=== PATIENT | female | born 1985 ===

== ENCOUNTER 2021-04-12 22:53 | Emergency (ER) | payer OTHER, SELFPAY ==
[2021-04-12 23:13] VITALS: BP 126/95; PULSE 95; RESP 20; TEMP 36.4; O2SAT 99
[2021-04-12 23:37] LABS: SARS-CoV-2 Ag Positive (Negative)
--- NOTE | 2021-04-12 23:45 | ED.FEVER ---
HPI - Fever General Chief Complaint: Fever Stated Complaint: weak/fatigued/possible covid Source: patient Mode of arrival: ambulatory Limitations: no limitations History of Present Illness HPI Narrative: this is a 36-year-old female called all for today because she was feverish and had some body aches and presents this evening with some mild cough low-grade fever with no shortness of breath no wheezing has been exposed to COVID. MD elicited complaint: fever Context: sick contacts Related Data Home Medications Medication Instructions Recorded Confirmed No Home Medications 04/12/21 04/12/21 Allergies Allergy/AdvReac Type Severity Reaction Status Date / Time No Known Allergies Allergy Unverified 01/18/19 08:43 Review of Systems Review of Systems: All systems reviewed & are unremarkable except as noted in HPI and below PMFSH Past Medical History Medical History Patient denies medical problems Family History Family History Other Family history of arthritis Family history of cardiovascular disease Family history of malignant neoplasm Hypertension Social History Social History Smoking status: Never smoker Alcohol intake: current Exam Const: General: no acute distress Orientation/consciousness: patient oriented x3 HENMT: Head: normal to inspection Eyes: Conjunctivae: conjunctivae normal Pupils: Equal, round and reactive pupils present EOM: EOMs intact bilaterally Direct Ophthalmoscopy: no photophobia Neck: Neck: normal visual inspection, no lymphadenopathy and no meningeal signs Chest: Chest palpation & inspection: normal inspection of the chest Resp: Effort & Inspection: normal respiratory effort Auscultation: clear to auscultation bilaterally Cardio: Rate: regular rate Rhythm: regular rhythm GI: GI Palp: Yes Soft to palpation Percussion: Yes normal to percussion : General: Yes no CVA tenderness Urinary Catheter: Urinary Catheter: patent and draining Back/Spine/Pelvis: Back: no CVA tenderness Skin: General skin exam: normal color Rashes: no rashes Neuro: General: patient oriented x3 Extrem: General: normal to inspection and no pedal edema Psych: Mental Status: mental status grossly normal Affect: normal affect Course [employer]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 Vital Signs Vital signs: Vital Signs Temperature 36.4 C 04/12/21 23:13 Pulse Rate 95 04/12/21 23:13 Respiratory Rate 04/12/21 23:13 Blood Pressure 126/95 H 04/12/21 23:13 Pulse Oximetry 99 04/12/21 23:13 Temperature 36.4 C 04/12/21 23:13 Pulse Rate 95 04/12/21 23:13 Respiratory Rate 04/12/21 23:13 Blood Pressure 126/95 H 04/12/21 23:13 Pulse Oximetry 99 04/12/21 23:13 MDM - Fever Lab Data Labs: Lab Results 04/12/21 Range/Units 23:15 SARS-CoV-2 Ag (Rapid) Positive A (Negative) Critical Care Time Critical Care Time Critical Care Time: No Discharge Plan Discharge Clinical Impression: COVID-19 Patient Disposition: Home, Self-Care Condition: Stable Instructions: Antibiotic Form, COVID-19 (Coronavirus Disease 2019) (ED) Additional Instructions: needs to quarantine x2 weeks follow up with primary care physician take Tylenol or Motrin drink plenty of water get rest. Prescriptions: No Action No Home Medications RF: 0 Follow-up/Referrals: Manuel Jones MD [Primary Care Provider] - Stand Alone Forms: Work/School Release IP Time of Disposition: 23:48
[2021-04-12 23:46] VITALS: BP 122/80; PULSE 87; RESP 20; TEMP 36.6; O2SAT 99
== END 2021-04-12 23:55 | disposition home or self-care (01) ==
PROVIDERS: Emergency Provider Emergency Medicine; PCP Family Medicine
DX: U07.1 COVID-19 (principal)
CPT/HCPCS: 87426; 99282; 99283; C9803

== ENCOUNTER 2022-01-16 06:31 | Emergency (ER) | payer OTHER, SELFPAY ==
[2022-01-16 06:53] VITALS: BP 109/84; PULSE 88; RESP 20; TEMP 36.7; O2SAT 98
[2022-01-16] MEDS: ACETAMINOPHEN 325 MG TABLET 650 MG PO (07:40)
[2022-01-16 08:15] LABS: Influenza A QL RT-PCR Negative (Negative); Influenza B QL RT-PCR Negative (Negative); SARS-CoV-2 RNA PCR Positive (Negative)
--- NOTE | 2022-01-16 08:32 | ED.URI ---
HPI - URI/Sore Throat General Chief Complaint: Upper Respiratory Infection Stated Complaint: fever sore throat headache Time Seen by Provider: 01/16/22 07:02 Source: patient and RN notes reviewed Mode of arrival: ambulatory Limitations: no limitations History of Present Illness MD elicited complaint: cough, sore throat and other ([place], exposure to the virus) Onset (ago): day(s) (2) Severity: mild Pain scale (0-10): 4 Able to tolerate fluids by mouth: Yes Exacerbating factors: nothing Relieving factors: nothing Associated symptoms: headache and sore throat Related Data Allergies Allergy/AdvReac Type Severity Reaction Status Date / Time No Known Allergies Allergy Unverified 01/18/19 08:43 Review of Systems Review of Systems: All systems reviewed & are unremarkable except as noted in HPI and below Constitutional: Constitutional: Reports no additional constitutional complaints Eyes: Eyes: Reports no additional eye complaints ENT: Reports system reviewed and no additional complaints, except as documented Cardiovascular: Cardiovascular: Reports no additional cardiovascular complaints Respiratory: Respiratory: Reports no additional respiratory complaints Gastrointestinal: Gastrointestinal: Reports no additional gastrointestinal complaints Genitourinary: Genitourinary: Reports no additional female genitourinary complaints Musculoskeletal: Musculoskeletal: Reports no additional musculoskeletal complaints Integumentary/Breasts: Skin/Breast: Reports system reviewed and no additional complaints, except as docu Neurologic: Reports system reviewed and no additional complaints, except as documented Psychiatric: Psychiatric: Reports no additional psychiatric complaints Endocrine: Endocrine: Reports no additional endocrine complaints Hematologic/Lymphatic: Hematologic/Lymphatic: Reports no additional hematologic/lymphatic complaints Allergic/Immunologic: Allergic/Immunologic: Reports no additional allergic/immunologic complaints PMFSH Past Medical History Medical History COVID-19 Patient denies medical problems Pharyngitis Family History Family History Other Family history of arthritis Family history of cardiovascular disease Family history of malignant neoplasm Hypertension Social History Social History Smoking status: Never smoker Alcohol intake: current Exam Const: General: healthy appearing and no acute distress Nutritional Appearance: well nourished Orientation/consciousness: patient oriented x3 Limitations: no limitations HENMT: Head: normal to inspection Ears: external ears normal, TM's normal bilaterally and EAC's normal General nose exam: Normal external nose present and Normal nares present Face and sinus: normal facial exam and sinuses nontender Mouth: Yes Normal oral and palatal mucosa present and Yes moist mucous membranes Teeth and gingiva: dentition normal Other: hyperemic pharynx Eyes: Conjunctivae: conjunctivae normal Pupils: Equal, round and reactive pupils present EOM: EOMs intact bilaterally Neck: Neck: normal visual inspection, no lymphadenopathy and no meningeal signs Chest: Chest palpation & inspection: normal inspection of the chest Resp: Effort & Inspection: normal respiratory effort Auscultation: clear to auscultation bilaterally Cardio: Rate: regular rate Rhythm: regular rhythm GI: GI Palp: Yes Soft to palpation and No Tenderness to palpation present (GI) Auscultation: normal bowel sounds : General: Yes bladder normal to palpation and Yes no CVA tenderness Bimanual exam- vagina & uterus: bladder normal to palpation Back/Spine/Pelvis: Back: no CVA tenderness Skin: General skin exam: normal color Rashes: no rashes Wounds: no wounds Neuro: General: patient oriented x3, moves all extremit
[2022-01-16] MEDS: cefTRIAXone 1 GM, LIDOCAINE HCL 1% LOCAL INJ 2.1 ML IM (08:43)
[2022-01-16] MEDS: guaiFENesin 12 HR 600 MG TABCR PO (08:43)
[2022-01-16 08:51] VITALS: BP 114/92; PULSE 76; RESP 16; TEMP 36.9; O2SAT 100
== END 2022-01-16 08:53 | disposition home or self-care (01) ==
PROVIDERS: Emergency Provider Emergency Medicine; PCP Family Medicine
DX: U07.1 COVID-19 (principal); J02.9 Acute pharyngitis, unspecified
CPT/HCPCS: 87502; 87880; 96372; 99283; A9270; C9803; J0696; U0003; U0005

== ENCOUNTER 2022-02-13 00:35 | Emergency (ER) | payer OTHER, SELFPAY ==
--- NOTE | ~2022-02-13 | XR_ITS ---
EXAMINATION: XR knee LT 3V DATE: 02/13/2022 01:35 INDICATION: Left knee pain. TECHNIQUE: 3 views of left knee were obtained. COMPARISON: None. FINDINGS: Bone alignment is normal. No fracture. There is mild tricompartmental osteoarthritis. No kn ee joint effusion. There are loose bodies in the joint. IMPRESSION: 1. Mild left knee osteoarthritis with loose bodies. Reviewed, dictated and finalized at location A.
--- NOTE | 2022-02-13 00:45 | ED.GENADULT ---
HPI - General Adult General Chief complaint: Extremity Problem,Nontraumatic Stated complaint: left knee History of Present Illness HPI narrative: this is a 36-year-old female with a chronic left knee injury present ED with left knee pain. Patient says that the pain has been getting progressively worse over the last month although she has been dealing with for 12-13 years. Patient has not tried anything for pain control. She does use a brace. She does walk a significant amount of work. She notices that the pain gets better when she is able to relax and when she does stretches. Patient denies any traumatic events. She denies any erythema warmth joint. She denies fever, chills, nausea vomiting or diarrhea. She has no other physical complaints at this time. Related Data Allergies Allergy/AdvReac Type Severity Reaction Status Date / Time No Known Allergies Allergy Unverified 01/18/19 08:43 Review of Systems Constitutional: Constitutional: Denies chills Eyes: Eyes: Denies no additional eye complaints ENT: Denies dysphagia Cardiovascular: Cardiovascular: Denies chest pain Respiratory: Respiratory: Denies chest congestion Gastrointestinal: Gastrointestinal: Denies abdominal pain Genitourinary: Genitourinary: Denies abnormal vaginal bleeding Musculoskeletal: Musculoskeletal: Denies back pain Integumentary/Breasts: Skin/Breast: Denies breast pain Neurologic: Denies confusion Psychiatric: Psychiatric: Denies anxiety Endocrine: Endocrine: Denies excessive sweating Hematologic/Lymphatic: Hematologic/Lymphatic: Denies easy bleeding Allergic/Immunologic: Allergic/Immunologic: Denies lip swelling PMFSH Past Medical History Medical History COVID-19 Hx of fracture of radius Patient denies medical problems Pharyngitis Family History Family History Other Family history of arthritis Family history of cardiovascular disease Family history of malignant neoplasm Hypertension Social History Social History Smoking status: Never smoker Alcohol intake: current Exam Const: General: healthy appearing, no acute distress and alert Nutritional Appearance: well nourished Orientation/consciousness: patient oriented x3 HENMT: Head: normal to inspection Eyes: Conjunctivae: conjunctivae normal Neck: Neck: normal visual inspection Chest: Chest palpation & inspection: normal inspection of the chest Resp: Effort & Inspection: normal respiratory effort Cardio: Rate: regular rate GI: GI Palp: Yes Soft to palpation, No Tenderness to palpation present (GI) and No Guarding due to palpation present (GI) Back/Spine/Pelvis: Back: no CVA tenderness Skin: General skin exam: normal color Neuro: General: patient oriented x3, moves all extremities and CN's II-XI intact bilaterally Extrem: General: normal to inspection Other: Patient is wearing a knee brace on her left knee. There is no skin discoloration. There is no swelling. There is no bruising. Patient has some pain on range of motion @ the extremes of range. She is able to ambulate. Course Vital Signs Vital signs: Vital Signs Temperature 97.6 F 02/13/22 00:58 Pulse Rate 100 02/13/22 00:58 Respiratory Rate 18 02/13/22 00:58 Blood Pressure 125/81 02/13/22 00:58 Pulse Oximetry 97 02/13/22 00:58 Oxygen Delivery Room Air 02/13/22 00:58 Temperature 97.6 F 02/13/22 00:58 Pulse Rate 100 02/13/22 00:58 Respiratory Rate 18 02/13/22 00:58 Blood Pressure 125/81 02/13/22 00:58 Pulse Oximetry 97 02/13/22 00:58 Oxygen Delivery Room Air 02/13/22 00:58 Medical Decision Making MDM Narrative Medical decision making narrative: This is a 36-year-old female presenting with acute on chronic knee pain. Patient injured her knee 12 13 years ago and th
[2022-02-13 00:58] VITALS: BP 125/81; PULSE 100; RESP 18; TEMP 36.4; O2SAT 97
[2022-02-13] MEDS: ACETAMINOPHEN 500 MG TABLET 1000 MG PO (01:08)
[2022-02-13] MEDS: IBUPROFEN 400 MG TABLET 800 MG PO (01:08)
[2022-02-13 02:08] VITALS: BP 128/74; PULSE 84; RESP 18; O2SAT 99
== END 2022-02-13 02:09 | disposition home or self-care (01) ==
PROVIDERS: Emergency Provider Emergency Medicine; PCP Family Medicine
DX: M17.12 Unilateral primary osteoarthritis, left knee (principal)
CPT/HCPCS: 73562; 99283; A9270

== ENCOUNTER 2024-03-27 20:50 | Emergency (ER) | payer OTHER, SELFPAY ==
--- NOTE | ~2024-03-27 | XR_ITS ---
EXAMINATION: XR chest 1V portable DATE: 03/27/2024 21:15 INDICATION: Subjective fever. COVID-19 exposure. TECHNIQUE: A single frontal view of the chest was obtained. COMPARISON: None. FINDINGS: There is no pneumonia, pleural effusion, or pneumothorax. The heart size is normal. IMPRESSION: 1. No acute cardiopulmonary disease. Reviewed, dictated and finalized at location A.
[2024-03-27 20:53] VITALS: BP 120/85; PULSE 93; RESP 18; TEMP 36.6; O2SAT 100
--- NOTE | 2024-03-27 21:06 | ED.GENADULT ---
HPI - General Adult General Chief complaint: Fever Stated complaint: upper respiratory Time Seen by Provider: 03/27/24 21:02 Source: patient Mode of arrival: ambulatory Limitations: no limitations History of Present Illness HPI narrative: patient came to the ED complaining of headache and not feeling well with general weakness started yesterday got worse today. Patient been exposed to COVID patient 1 week ago at work. Currently she denies any fever, chills, nausea, vomiting, shortness of breath or chest pain. Patient been taking Excedrin with improving Related Data Home Medications Medication Instructions Recorded Confirmed No Home Medications 03/27/24 03/27/24 Allergies Allergy/AdvReac Type Severity Reaction Status Date / Time No Known Allergies Allergy Unverified 01/18/19 08:43 Review of Systems Review of Systems: All systems reviewed & are unremarkable except as noted in HPI and below PMFSH Past Medical History Medical History COVID-19 Hx of fracture of radius Patient denies medical problems Pharyngitis Family History Family History Other Family history of arthritis Family history of cardiovascular disease Family history of malignant neoplasm Hypertension Social History Social History Smoking status: Never smoker Alcohol intake: current Exam Narrative: General appearance: Well-developed, well-nourished Skin: Normal color Head: Normocephalic, nontraumatic Eyes: Clear conjunctiva ENT: Oropharynx normal, ears normal, nose normal Neck: Supple, nontender Chest and respiratory: Airway patent, no respiratory distress, no accessory muscle use Heart: Regular rate/rhythm Abdomen: Soft, nontender, no organomegaly, quiet bowel sounds Vascular: Normal peripheral pulses, normal capillary refill. Musculoskeletal: Normal range of motion, nontender back Neurologic: Alert and oriented ?3, WE[employer]ISTR[employer] is normal as tested, no gross motor deficit Course Vital Signs Vital signs: Vital Signs Temperature 36.6 C 03/27/24 20:53 Pulse Rate 93 03/27/24 20:53 Respiratory Rate 18 03/27/24 20:53 Blood Pressure 120/85 03/27/24 20:53 Pulse Oximetry 100 03/27/24 20:53 Oxygen Delivery Room Air 03/27/24 20:53 Temperature 36.6 C 03/27/24 20:53 Pulse Rate 93 03/27/24 20:53 Respiratory Rate 18 03/27/24 20:53 Blood Pressure 120/85 03/27/24 20:53 Pulse Oximetry 100 03/27/24 20:53 Oxygen Delivery Room Air 03/27/24 20:53 Medical Decision Making MDM Narrative Medical decision making narrative: differential diagnosis viral infection, urinary tract infection, depression, anxiety. Today workup showed negative for COVID, urine analysis showed no evidence of infection, Patient agreed with a lot of stress lately. Vital Signs Vital Signs: Vital Signs Temperature 36.6 C 03/27/24 20:53 Pulse Rate 93 03/27/24 20:53 Respiratory Rate 18 03/27/24 20:53 Blood Pressure 120/85 03/27/24 20:53 Pulse Oximetry 100 03/27/24 20:53 Oxygen Delivery Room Air 03/27/24 20:53 Temperature 36.6 C 03/27/24 20:53 Pulse Rate 93 03/27/24 20:53 Respiratory Rate 18 03/27/24 20:53 Blood Pressure 120/85 03/27/24 20:53 Pulse Oximetry 100 03/27/24 20:53 Oxygen Delivery Room Air 03/27/24 20:53 Lab Data Labs: Lab Results 03/27/24 03/27/24 Range/Units 20:54 21:38 Urine Color Light yellow (Yellow) Urine Appearance Clear (Clear) Urine pH 6.0 (5.0-8.0) Ur Specific [place] 1.025 H (1.010-
--- NOTE | 2024-03-27 21:11 | PC.NURSE ---
Say with xray at the bedside
[2024-03-27 21:33] LABS: Influenza A QL RT-PCR Negative (Negative); Influenza B QL RT-PCR Negative (Negative); RSV RNA, RT-PCR Negative (Negative); SARS-CoV-2 RNA PCR Negative (Negative)
--- NOTE | 2024-03-27 21:39 | PC.NURSE ---
pt taken to bathroom to get a urine specimen
[2024-03-27 21:46] LABS: Add Urine Microscopic? YES; Appearance Urine Clear (Clear); Bilirubin Urine Negative (Negative); Blood Urine Negative (Negative); Color Urine Light Yellow (Yellow); Glucose Urine UA Negative (Negative); Ketones Urine Negative (Negative); Leukocyte Esterase Ur Trace LEU/UL (Negative); Nitrate Urine Negative (Negative); Protein Urine Negative (Negative); Specific Grav Ur 1.025 (1.010-1.020)
[2024-03-27 21:50] LABS: Bacteria Urine Trace /hpf; RBC Urine None seen /hpf (0-2); Squamous Epithelial Cell Urine Few /hpf (Few); WBC Urine 0-3 /hpf (0-3)
[2024-03-27 22:00] VITALS: BP 122/82; PULSE 80; RESP 18; O2SAT 98
== END 2024-03-27 22:00 | disposition home or self-care (01) ==
PROVIDERS: Emergency Provider Emergency Medicine
DX: R50.9 Fever, unspecified (principal); R51.9 Headache, unspecified; R53.1 Weakness; Z20.822 Contact with and (suspected) exposure to COVID-19
CPT/HCPCS: 71045; 81001; 87637; 99283

== ENCOUNTER 2024-07-04 16:18 | Emergency (ER) | payer OTHER, SELFPAY ==
--- NOTE | ~2024-07-04 | CT_ITS ---
CT abdomen pelvis wo con Ordering provider: Norbert Polo MD History: 39 years Female with . renal stone/right side pain . Comparison: None. Technique: CT abdomen and pelvis without IV and without oral contrast. Automated exposure control and iterative reconstruction technique were employed. The dose-length product was 188.06 mGy-cm. Findings: VISUALIZED LOWER CHEST: Normal. Trace pericardial effusion. UPPER ABDOMINAL ORGANS: Liver: Hepatomegaly..Calcification is seen in the marivel hepatis area.bile or cystic duct stone canno t be excluded.. Gallbladder: Cholelithiasis. Lucency is seen which may be a stone.Air is less likely. Spleen: Normal. Stomach/duodenum: Normal. Pancreas: Normal. Adrenals: Normal. Kidneys: Normal. PELVIC ORGANS: The bladder is underfilled. Slightly thickened wall. Enlarged left ovary is seen measuring 3.7 x 7. 6 cannot be excluded. Ultrasound evaluation advised. BOWEL AND MESENTERY: Colon: No Evidence of diverticulitis. Fecal material is seen in the colon suggestive of constipation. No evidence of appendicitis. Small Bowel: Normal. No obstruction. Peritoneum/mesentery: No free air or free fluid. No mesenteric lymphadenopathy. RETROPERITONEUM: Normal aorta. No retroperitoneal lymphadenopathy. MUSCULOSKELETAL: Superficial soft tissues: The superficial soft tissues are normal. Bones: Normal spine. IMPRESSION: 1. No evidence of appendicitis, diverticulitis or intestinal obstruction. 2. Cholelithiasis. Possible stone in the cystic or common bile duct. 3. Enlarged left ovary. Evaluation for torsion ovary should be considered. Ultrasound is recommended . 4. Hepatomegaly. 5. Constipation.. Reviewed, dictated and finalized at location A. NESS OBJECTS ANALYST IMPRESSION: 1. No evidence of appendicitis, diverticulitis or intestinal obstruction. 2. Cholelithiasis. Possible stone in the cystic or common bile duct. 3. Enlarged left ovary. Evaluation for torsion ovary should be considered. Ult rasound is recommended. 4. Hepatomegaly. 5. Constipation..
[2024-07-04 16:18] VITALS: BP 109/79; PULSE 114; RESP 16; TEMP 37.4; O2SAT 100
--- NOTE | 2024-07-04 16:24 | ED_ITS ---
HPI - Female Genitourinary General Chief complaint: Urogenital-Female Stated complaint: UTI Time Seen by Provider: 07/04/24 16:23 Source: patient Mode of arrival: ambulatory Limitations: no limitations History of Present Illness HPI Narrative: patient is a 39-year-old female with right back pain lower and right flank and forward pain of the abdomen for the past week. She has been having discomfort on urination and urinating more than normal. MD elicited complaint: dysuria, UTI , back pain ( Right lower back) and flank pain ( right side) Pertinent past history: other ( none) Onset (ago): week(s) (1) Location of symptoms: suprapubic, RLQ and flank ( right) Severity: moderate Female Urogenital Radiation: R Flank Severity scale (1-10): 6 Quality of pain: sharp Consistency: constant Vaginal discharge: none Vaginal bleeding: none Urinary symptoms: Dysuria, Urgency and Frequency Exacerbating factors: other ( patient took azo this week which helped minimally) Relieving factors: none Associated symptoms: abdominal pain and back pain Treatment prior to arrival: other ( azo) Related Data Home Medications Medication Instructions Recorded Confirmed No Home Medications 03/27/24 07/04/24 Allergies Allergy/AdvReac Type Severity Reaction Status Date / Time No Known Allergies Allergy Unverified 07/04/24 16:44 Review of Systems Review of Systems: All systems reviewed & are unremarkable except as noted in HPI and below Constitutional: Constitutional: Reports no additional constitutional co mplaints Eyes: Eyes: Reports no additional eye complaints ENT: Reports system reviewed and no additional complaints, except as documented Cardiovascular: Cardiovascular: Reports no additional cardiovascular complaints Respiratory: Respiratory: Reports no additional respiratory complaints Gastrointestinal: Gastrointestinal: Reports no additional gastrointestinal complaints Genitourinary: Genitourinary: Reports no additional female genitourinary complaints Musculoskeletal: Musculoskeletal: Reports no additional musculoskeletal complaints Integumentary/Breasts: Skin/Breast: Reports system reviewed and no additional complaints, except as docu Neurologic: Reports system reviewed and no additional complaints, except as documented Psychiatric: Psychiatric: Reports no additional psychiatric complaints Endocrine: Endocrine: Reports no additional endocrine complaints Hematologic/Lymphatic: Hematologic/Lymphatic: Reports no additional hematologic/lymphatic complaints Allergic/Immunologic: Allergic/Immunologic: Reports no additional allergic/ immunologic complaints PMFSH Past Medical History Medical History COVID-19 Hx of fracture of radius Patient denies medical problems Pharyngitis Family History Family History Other Family history of arthritis Family history of cardiovascular disease Family history of malignant neoplasm Hypertension Social History Social History Smoking status: Never smoker Alcohol intake: current Exam Const: General: healthy appearing Nutritional Appearance: well nourished Orientation/consciousness: patient oriented x3 Limitations: no limitations Other: acute pain/ distress due to the right back pain and she also has a headache at this time HENMT: Head: normal to inspection Ears: external ears normal Face/ Nose/Sinus: Normal external nose present Eyes: Conjunctivae: conjunctivae normal Pupils: Equal, round and reactive pupils present EOM: EOMs intact bilaterally Neck: Neck: normal visual inspection Chest: Chest palpation & inspection: normal inspection of the chest Resp: Effort & Inspection: normal respiratory effort and not labored Auscultation: clear to auscultation bilaterally Cardio: Rate: regular rate Rhythm: regular rhythm Heart sounds: no murmurs GI: Inspection: non-distended GI Palp: Yes Soft to palpation, Yes Tenderness to palpation present (GI) ( right lower quadrant and right flank and right lower back), No Guarding due to palpation present (GI), No Rigid due to palpation, No Hernia present, No Palpable mass present and No Rebound tenderness present Auscultation: normal bowel sounds Back/Spine/Pelvis: Back: no CVA tenderness Skin: General skin exam: normal color Rashes: no rashes Wounds: no wounds Neuro: General: patient oriented x3 Cranial nerves: Yes Nystagmus not present Speech: normal speech Extrem: General: normal to inspection Psych: Appearance: grossly normal Mental Status: mental status grossly normal Affect: normal affect Course Vital Signs Vital signs: Vital Signs Temperature 37.4 C 07/04/24 16:18 Pulse Rate 114 H 07/04/24 16:18 Respiratory Rate 16 07/04/24 16:18 Blood Pressure 109/79 07/04/24 16:18 Pulse Oximetry 100 07/04/24 16:18 Temperature 37.4 C 07/04/24 16:18 Pulse Rate 99 12/03/24 18:56 Respiratory Rate 16 07/04/24 18:56 Blood Pressure 116/91 H 07/04/24 18:56 Pulse Oximetry 100 07/04/24 18:56 Oxygen Delivery Room Air 07/04/24 18:00 MDM - Female Genitourinary MDM Narrative Medical decision making narrative: patient is a 39-year-old female with right sided pain and urinary symptoms. We will initially start with UA and U preg. Much urine blood was noted and with her symptoms we will go ahead and get a CT abdomen and pelvis to rule out kidney stone. If that is positive we will check labs. CT scan shows a questionable torsion on the left. We will transfer patient ER to ER for an emergent ultrasound at this time. They will treat the UTI at that time. Discussed case with ER attending. Lab Data Attestation: I reviewed the patient's lab results. 07/04/24 19:48 07/04/24 19:48 Labs: Lab Results 07/04/24 07/04/24 07/04/24 Range/Units 16:23 16:24 19:48 WBC 7.5 (4.8-10.8) K/mm3 RBC 3.65 L (4.20-5.40) M/mm3 Hgb 11.5 L (12.0-15.0) g/dL Hct 33.0 L (35.0-49.0) % MCV 90.4 (78.0-102.0) fL MCH 31.5 H (27.0-31.0) pg MCHC 34.8 (32-36) g/dL RDW 12.1 (11.6-14.4) % Plt Count 284 (150-420) K/mm3 MPV 9.0 L (9.2-11.8) fl Immature Gran % (Auto) 0.4 H (0.0-0.0) % Neut % (Auto) 65.2 (50.0-70.0) % Lymph % (Auto) 23.1 (18.0-42.0) % [place] % (Auto) 9.1 (2.0-11.0) % Eos % (Auto) 1.7 (1.0-6.0) % Baso % (Auto) 0.5 (0.0-1.0) % Lymph # (Auto) 1.72 (1.10-4.50) K/mm3 [place] # (Auto) 0.68 (0.10-0.90) K/mm3 Eos # (Auto) 0.13 (0.02-0.50) K/mm3 Baso # (Auto) 0.04 (0.00-0.10) K/mm3 Abs Immat Gran (auto) 0.03 H (0.00-0.00) K/mm3 Absolute Neuts (auto) 4.85 (1.70-7.20) K/mm3 Absolute Nucleated RBC 0.00 (0.00-0.00) K/mm3 Nucleated RBC % 0.0 (0-0.0) % PT 10.9 (9.50-12.1) Seconds INR 1.0 APTT 31.8 H (23.9-30.70) Sec Sodium 134 L (136-145) mmol/L Potassium 3.3 L (3.5-5.1) mmol/L Chloride 99 (98-108) mmol/L Carbon Dioxide 28 (21-32) mmol/L Anion Gap 7 (4-12) mmol/L BUN 5 L (7-18) mg/dL Creatinine 0.68 (0.55-1.02) mg/dL Estim Creat Clear Calc 76 ml/min Estimated GFR > 60 (59 - ) Glucose 110 H (70-99) mg/dL Calculated Osmolality 276 L (285-295) mOsm/kg Calcium 8.6 (8.5-10.1) mg/dL Total Bilirubin 0.5 (0.00-1.00) mg/dL AST 16 (15-37) U/L ALT 53 (14-59) U/L Alkaline Phosphatase 108 (46-116) U/L Total Protein 6.9 (6.4-8.2) g/dL Albumin 2.7 L (3.4-5.0) g/dL Urine Color Light yellow (Yellow) Urine Appearance Sl cloudy A (Clear) Urine pH 7.0 (5.0-8.0) Ur Specific [place] 1.010 (1.010-1.020) Urine Protein Trace H (Negative) Urine Glucose (UA) Negative (Negative) Urine Ketones Negative (Negative) Ur Blood (Man) 2+ H (Negative) Urine Nitrate Negative (Negative) Urine Bilirubin Negative (Negative) Urine Urobilinogen 2.0 H (0.2-1.0) mg/dL Leukocyte Esterase Rfl 1+ H (Negative) MURRAY/UL Urine RBC 6-10 H (0-2) /hpf Urine WBC 7-9 H (0-3) /hpf Ur Squamous Epith Cells Few (Few) /hpf Urine Bacteria 1+ H (None) /hpf Urine Test Negative Imaging Data Attestation: I personally reviewed and interpreted this imaging study as follows: Discharge Plan Discharge Clinical Impression: UTI (urinary tract infection), Ovarian torsion Patient Disposition: Acute Care Hospital Condition: Serious Prescriptions: No Action No Home Medications Follow-up/Referrals: UNKNOWN,DOCTOR [Primary Care Provider] - Time of Disposition: 20:16
[2024-07-04 16:40] LABS: Add Urine Microscopic? YES; Appearance Urine Sl Cloudy (Clear); Bilirubin Urine Negative (Negative); Blood Urine 2+ (Negative); Color Urine Light Yellow (Yellow); Glucose Urine UA Negative (Negative); Ketones Urine Negative (Negative); Leukocyte Esterase Ur 1+ LEU/UL (Negative); Nitrate Urine Negative (Negative); Protein Urine Trace (Negative)
[2024-07-04 16:46] LABS: Bacteria Urine 1+ /hpf; Squamous Epithelial Cell Urine Few /hpf (Few)
[2024-07-04 16:46] LABS: Pregnancy On Board Control Positive; Urine Pregnancy Test Negative
[2024-07-04 17:30] VITALS: BP 113/79; PULSE 100; RESP 17; O2SAT 100
[2024-07-04 18:00] VITALS: BP 124/85; PULSE 102; RESP 17; O2SAT 100
[2024-07-04 18:56] VITALS: BP 116/91; PULSE 99; RESP 16; O2SAT 100
[2024-07-04 19:51] LABS: Basophils Absolute Auto 0.04 K/mm3 (0.00-0.10); Basophils Percent Auto 0.5 % (0.0-1.0); Eosinophils Absolute Auto 0.13 K/mm3 (0.02-0.50); Eosinophils Percent Auto 1.7 % (1.0-6.0); Hemoglobin 11.5 g/dL (12.0-15.0); Immature Granulocyte Absolute 0.03 K/mm3 (0.00-0.00); Immature Granulocyte Percent A 0.4 % (0.0-0.0); Lymphocytes Absolute Auto 1.72 K/mm3 (1.10-4.50); Lymphocytes Percent Auto 23.1 % (18.0-42.0); Mean Corpuscular HGB Conc 34.8 g/dL (32-36); Mean Corpuscular Hemoglobin 31.5 pg (27.0-31.0); Mean Corpuscular Volume 90.4 fL (78.0-102.0); Monocytes Absolute Auto 0.68 K/mm3 (0.10-0.90); Monocytes Percent Auto 9.1 % (2.0-11.0); Neutrophils Absolute Auto 4.85 K/mm3 (1.70-7.20); Neutrophils Percent Auto 65.2 % (50.0-70.0); Platelet Count Result 284 K/mm3 (150-420); Red Blood Count 3.65 M/mm3 (4.20-5.40); Red Cell Distribution Width 12.1 % (11.6-14.4); White Blood Count 7.5 K/mm3 (4.8-10.8)
[2024-07-04 20:05] LABS: Partial Thromboplastin Time 31.8 Sec (23.9-30.70); Prothrombin Time 10.9 Seconds (9.50-12.1)
[2024-07-04 20:06] LABS: Alanine Aminotransferase 53 U/L (14-59); Albumin Level 2.7 g/dL (3.4-5.0); Alkaline Phosphatase 108 U/L (46-116); Anion Gap 7 mmol/L (4-12); Aspartate Amino Transferase 16 U/L (15-37); Bilirubin,Total 0.5 mg/dL (0.00-1.00); Blood Urea Nitrogen 5 mg/dL (7-18); Calcium 8.6 mg/dL (8.5-10.1); Carbon Dioxide 28 mmol/L (21-32); Chloride 99 mmol/L (98-108); Estimated CRCL calculation 76 ml/min; Estimated Glomerular Filt Rate > 60; Glucose 110 mg/dL (70-99); Osmolality Calculated 276 mOsm/kg (285-295); Potassium 3.3 mmol/L (3.5-5.1); Sodium 134 mmol/L (136-145); Total Protein 6.9 g/dL (6.4-8.2)
[2024-07-04] MEDS: POTASSIUM CHLORIDE 20 MEQ ER TABLET PO (20:23)
[2024-07-04] MEDS: MORPHINE SULFATE (*CRX) 4 MG/ML INJ IV PUSH (20:23)
[2024-07-04 20:32] VITALS: BP 109/77; PULSE 99; RESP 18; TEMP 36.9; O2SAT 100
--- NOTE | 2024-07-06 13:25 | PC.NURSE ---
urine culture final reviewed per dr pelayo. no change needed. pt rx -- keflex
== END 2024-07-04 20:45 | disposition short-term general hospital (02) ==
PROVIDERS: Emergency Provider Emergency Medicine
DX: N39.0 Urinary tract infection, site not specified (principal); N83.512 Torsion of left ovary and ovarian pedicle
CPT/HCPCS: 36415; 74176; 80053; 81001; 81025; 85025; 85610; 85730; 87077; 87086; 87088; 87186; 96374; 99285; A9270; J2270

== ENCOUNTER 2024-07-04 21:17 | Emergency (ER) | payer OTHER, SELFPAY ==
--- NOTE | ~2024-07-04 | US_ITS ---
US pelvic complete w TV Ordering provider: Hugh De Souza MD History: . Pelvic pain rule out ovarian torsion . Comparison: None. Technique: Transabdominal and endovaginal ultrasound of the pelvis (Doppler ultrasound interrogation techniques used as needed for this exam.) FINDINGS: CERVIX: Normal. UTERUS: Measures 6.7x 3.5x 3.6 cm in length which is within normal limits and is anteverted. No myom etrial masses. ENDOMETRIUM: Normal in thickness measuring 6.5 mm. (Note: the premenopausal endometrium may measure u p to 16 mm when in the secretory phase.) No endometrial masses, cysts or fluid. CUL DE SAC: No free fluid. RIGHT OVARY: Normal in size measuring 4x 1.6x 2.8 cm. Normal echotexture. Doppler vascular flow prese nt. LEFT OVARY: Normal in size measuring 4.9x 4.5x 4.6 cm. Normal echotexture. Doppler vascular flow pres ent. Large Complex cyst is seen in the left ovary most likely hemorrhagic. ADNEXA: Normal. No mass. IMPRESSION: Large complex cyst in the left ovary. No evidence of torsion seen although cannot be excluded. Clinic al correlation advised. Otherwise, normal pelvic ultrasound. Reviewed, dictated and finalized at location A. L INSPECTOR IMPRESSION: Large complex cyst in the left ovary. No evidence of torsion seen although denisha ot be excluded. Clinical correlation advised. Otherwise, normal pelvic ultrasou nd.
[2024-07-04 21:19] VITALS: BP 115/87; PULSE 97; RESP 19; TEMP 36.6; O2SAT 100
--- NOTE | 2024-07-04 22:42 | ED.GENADULT ---
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 The patient was seen [facility] had a CT scan and laboratory studies patient was found to have a UTI but also had a question as to whether there was a ovarian torsion on the CT scan. The patient was transferred for ultrasound capability the patient reports that her pain is doing much better at this time Related Data Allergies Allergy/AdvReac Type Severity Reaction Status Date / Time No Known Allergies Allergy Unverified 07/04/24 16:44 Review of Systems Review of Systems: A 10 system review of systems was completed on the patient and is negative except for what is stated in the HPI. Nursing and ancillary documentation was reviewed. [facility] Past Medical History Medical History COVID-19 Hx of fracture of radius Patient denies medical problems Pharyngitis Family History Family History Other Family history of arthritis Family history of cardiovascular disease Family history of malignant neoplasm Hypertension Social History Social History Smoking status: Never smoker Alcohol intake: current Exam Narrative: GENERAL: Well-appearing, well-nourished, and in no acute distress. HEAD: Normocephalic, atraumatic. EYES: PERRLA and EOMI. ENT: Nares clear, no rhinorrhea or epistaxis. Mucous membranes moist. NECK: Supple. CHEST: Clear to auscultation. No respiratory distress. HEART: Regular rate and rhythm. No murmur heard. Normal peripheral pulses. ABDOMEN: Soft, tenderness to palpation in the lower quadrants, nondistended, normal active bowel sounds. EXTREMITIES: Normal range of motion. No edema. SKIN: Warm, dry, no rash. NEURO: No focal deficits. Alert and oriented x3. PSYCH: Normal mood and affect. Course Vital Signs Vital signs: Vital Signs Temperature 36.6 C 07/04/24 21:19 Pulse Rate 97 07/04/24 21:19 Respiratory Rate 19 07/04/24 21:19 Blood Pressure 115/87 07/04/24 21:19 Pulse Oximetry 100 07/04/24 21:19 Oxygen Delivery Room Air 07/04/24 21:19 Temperature 36.6 C 07/04/24 21:19 Pulse Rate 97 07/04/24 21:19 Respiratory Rate 19 07/04/24 21:19 Blood Pressure 115/87 07/04/24 21:19 Pulse Oximetry 100 07/04/24 21:19 Oxygen Delivery Room Air 07/04/24 21:19 Medical Decision Making MDM Narrative Medical decision making narrative: The patient was transferred ultrasound availability Ultrasound showed no evidence of torsion there was evidence of a hemorrhagic ovarian cyst Large complex cyst in the left ovary. No evidence of torsion seen although cannot be excluded. Clinical correlation advised. Otherwise, normal pelvic ultrasound. The patient be started on Keflex and will be referred to OBGYN Vital Signs Vital Signs: Vital Signs Temperature 36.6 C 07/04/24 21:19 Pulse Rate 97 07/04/24 21:19 Respiratory Rate 19 07/04/24 21:19 Blood Pressure 115/87 07/04/24 21:19 Pulse Oximetry 100 07/04/24 21:19 Oxygen Delivery Room Air 07/04/24 21:19 Temperature 36.6 C 07/04/24 21:19 Pulse Rate 97 07/04/24 21:19 Respiratory Rate 19 07/04/24 21:19 Blood Pressure 115/87 07/04/24 21:19 Pulse Oximetry 100 07/04/24 21:19 Oxygen Delivery Room Air 07/04/24 21:19 Discharge Plan Discharge Clinical Impression: Ovarian cyst, UTI (urinary tract infection) Patient Disposition: Home, Self-Care Condition: Stable Instructions: Antibiotic Form, Ovarian Cyst (ED), Urinary Tract Infection in Women (ED) Prescriptions: New cephalexin 500 mg capsule 500 mg PO Q8H 7 Days Qty: 21 0RF Follow-up/Referrals: Rakesh Pike MD [Physician] - James Robin MD [Physician] - UNKNOWN,DOCTOR [Primary Care Provider] - Time of Disposition: 22:47
[2024-07-04] MEDS: CEPHALEXIN 500 MG CAPSULE PO (22:56)
[2024-07-04 23:00] VITALS: BP 122/85; PULSE 89; RESP 16; O2SAT 99
== END 2024-07-04 23:04 | disposition home or self-care (01) ==
PROVIDERS: Emergency Provider Emergency Medicine
DX: N39.0 Urinary tract infection, site not specified (principal); N83.202 Unspecified ovarian cyst, left side
CPT/HCPCS: 76830; 76856; 99284; A9270